=== PATIENT | male | born 1970 | race Caucasian/White ===

== ENCOUNTER 2019-08-12 09:35 | Emergency (ER) | payer SELFPAY ==
[~2019-08-12] VITALS: Ht 172.7 cm; Wt 87.5 kg
[2019-08-12 09:44] VITALS: BP_SYST 115
--- NOTE | 2019-08-12 09:46 | NUR ---
Patient to ER bed 04 to gown for evaluation. Side rails up.
--- NOTE | 2019-08-12 09:48 | NUR ---
Patient arrived in the ED c/o fevers and bilateral earaches with drainage that started last week. Denied any chest pain or shortness of breath. Denied any fevers, nausea, vomiting, or chills. Patient is alert and oriented x4, respirations even and unlabored, speaking in full sentences, ambulating with a steady gait. VSS, pain level 10/10. Informed of wait time. Instructed to notify ED staff for any changes in condition or worsening of symptoms. Patient verbalized understanding.
--- NOTE | 2019-08-12 10:06 | NUR ---
ER Dr. Barker at bedside examining patient.
--- NOTE | 2019-08-12 10:20 | NUR ---
nanotechnology technician at bedside collecting blood specimen as ordered by Dr. Barker. Patient tolerated the procedure well.
[2019-08-12 10:32] LABS: BASOPHILS % (AUTO) 0.7 % (0.0-2.0); EOSINOPHILS # (AUTO) 0.1 K/uL (0.0-0.4); EOSINOPHILS % (AUTO) 2.1 % (0.0-4.0); HEMOGLOBIN 15.4 g/dL (14.0-18.0); LYMPHOCYTES # (AUTO) 2.4 K/uL (1.0-5.5); LYMPHOCYTES % (AUTO) 44.5 % (20.5-51.5); MEAN CORPUSCULAR HEMOGLOBIN 30 pg (27-31); MEAN CORPUSCULAR HGB CONC 33 % (32-36); MEAN CORPUSCULAR VOLUME 89 fL (79.0-98.0); MONOCYTES # (AUTO) 0.4 K/uL (0.0-1.0); MONOCYTES % (AUTO) 6.9 % (1.7-9.3); NEUTROPHILS # (AUTO) 2.4 K/uL (1.8-7.7); NEUTROPHILS % (AUTO) 45.8 % (40.0-70.0); PLATELET COUNT (AUTO) 276 K/uL (130-430); RED BLOOD CELL COUNT(AUTO) 5.18 MIL/uL (4.2-6.2); RED CELL DISTRIBUTION WIDTH 13.7 % (9.0-15.0); WHITE BLOOD COUNT (AUTO) 5.3 K/uL (4.8-10.8)
[2019-08-12 10:41] LABS: PROTHROMBIN TIME 9.8 SECS (9.5-12.5)
[2019-08-12 10:51] LABS: ANION GAP < 3 (5-15); CALCIUM 8.5 mg/dL (8.4-11.0); CHLORIDE 101 mmol/L (98-107); CREATININE 0.93 mg/dL (0.55-1.30); GFR AFRICAN AMERICAN 112 mL/min (>90); GLUCOSE 82 mg/dL (70-99); POTASSIUM 4.6 mmol/L (3.5-5.1); SODIUM SERUM 133 mmol/L (136-145); UREA NITROGEN, BLOOD 15 mg/dL (8-21)
[2019-08-12 10:54] LABS: ALANINE AMINOTRANSFERASE 25 U/L (12-78); ALBUMIN 3.6 g/dL (3.4-4.8); ASPARTATE AMINOTRANSFERASE 15 U/L (10-37); TOTAL BILIRUBIN 0.6 mg/dL (0.0-1.0)
[2019-08-12 10:58] LABS: C-REACTIVE PROTEIN QUANT < 0.2 mg/dL (0-0.5)
[2019-08-12 11:29] VITALS: BP_SYST 116
--- NOTE | 2019-08-12 11:29 | NUR ---
Patient given written and verbal discharge instructions and verbalizes understanding. ER MD discussed with patient the results and treatment provided. Patient in stable condition. ID arm band removed. Rx of Hydrocortisone, Clindamycin and Motrin given. Patient educated on pain management and to follow up with PMD. Pain Scale 0/10. Opportunity for questions provided and answered. Medication side effect fact sheet provided.
== END 2019-08-12 11:29 | disposition home or self-care (01) ==
LOC: SED 09:35
DX: H60.93 Unspecified otitis externa, bilateral (principal)
CPT/HCPCS: 36415; 80053; 83036; 83605; 85025; 85610-TC; 85730-TC; 86140; 99283

== ENCOUNTER 2023-06-17 18:03 | Emergency (ER) | payer BC ==
[~2023-06-17] VITALS: Ht 172.7 cm; Wt 95.3 kg
[~2023-06-17 18:03] MED LIST: AMOX-423 PO
[2023-06-17 18:30] VITALS: BP_SYST 106; PULSE 69; RESP 18; TEMP 98.3; O2SAT 98
[2023-06-17 19:10] LABS: COVID19 ANTIGEN SOFIA FIA NEGATIVE (NEGATIVE)
[2023-06-17 19:22] LABS: INFLUENZA TYPE A Negative (NEGATIVE); INFLUENZA TYPE B NEGATIVE (NEGATIVE)
[2023-06-17] MEDS ORDERED: BENZ100C92 PO (20:12)
[2023-06-17] MEDS ORDERED: IBUP-1969 PO (20:12)
[2023-06-17] MEDS ORDERED: ZIT250 PO (20:12)
== END 2023-06-17 20:18 | disposition home or self-care (01) ==
LOC: SED 18:03
DX: B34.9 Viral infection, unspecified (principal); R05.9 Cough, unspecified; R09.89 Other specified symptoms and signs involving the circulatory and respiratory systems; J02.9 Acute pharyngitis, unspecified; Z79.899 Other long term (current) drug therapy; Z20.822 Contact with and (suspected) exposure to COVID-19
CPT/HCPCS: 36415; 99283